=== PATIENT | female | born 1975 | race Caucasian/White ===

== ENCOUNTER 2019-02-23 14:21 | Emergency (ER) | payer BC, MEDICAID ==
[~2019-02-23] VITALS: Ht 162.6 cm; Wt 63.0 kg
[~2019-02-23 14:21] MED LIST: FLUT16SP26 BOTHNARES
--- NOTE | 2019-02-23 14:38 | NUR ---
CALLED POISON CONTROL. RECOMMENDATION CONTINUE TO OBSERVE VSS AND RESP DEPRESSION. DRAW LIVER FUNCTION TEST, ASA AND TYLENOL LEVELS. NARCAN OK TO GIVE IF NEEDED.
[2019-02-23 15:19] LABS: BASOPHILS # (AUTO) 0.1 X10'3 (0-0.2); BASOPHILS % (AUTO) 1.5 % (0-1); EOSINOPHILS # (AUTO) 0.3 X10'3 (0-0.9); EOSINOPHILS % (AUTO) 3.6 % (0-6); HEMATOCRIT 43.4 % (35.0-45.0); LYMPHOCYTES # (AUTO) 2.7 X10'3 (1.1-4.8); LYMPHOCYTES % (AUTO) 34.7 % (21-51); MEAN CORPUSCULAR HEMOGLOBIN 31.7 PG (27.0-31.0); MEAN CORPUSCULAR HGB CONC 34.5 g/dL (33.0-36.5); MEAN CORPUSCULAR VOLUME 91.7 FL (78-98); MEAN PLATELET VOLUME 8.8 FL (7.4-10.4); MONOCYTES # (AUTO) 0.4 X10'3 (0-0.9); MONOCYTES % (AUTO) 4.9 % (2-12); NEUTROPHILS # (AUTO) 4.3 X10'3 (1.8-7.7); NEUTROPHILS % (AUTO) 55.3 % (42-75); PLATELET COUNT 309 X10'3 (140-440); RED BLOOD COUNT 4.73 X10'6 (4.20-5.60); RED CELL DISTRIBUTION WIDTH 12.1 % (11.5-14.5); WHITE BLOOD COUNT 7.7 X10'3 (4.5-11.0)
[2019-02-23 15:40] LABS: ALANINE AMINOTRANSFERASE 40 U/L (12-78); ALBUMIN 4.4 G/DL (3.4-5.0); ALBUMIN/GLOBULIN RATIO 1.4 (1.1-1.5); ALKALINE PHOSPHATASE 51 IU/L (46-116); ANION GAP 11 (8-16); ASPARTATE AMINO TRANSFERASE 29 U/L (10-37); BILIRUBIN,TOTAL 0.6 MG/DL (0.1-1.0); BLOOD UREA NITROGEN 8 MG/DL (7-18); BUN/CREATININE RATIO 8.3 (6.6-38.0); CALCIUM 8.9 MG/DL (8.5-10.1); CHLORIDE 111 MMOL/L (99-107); CREATININE 0.96 MG/DL (0.40-0.90); GLUCOSE 94 MG/DL (70-104); POTASSIUM 3.8 MMOL/L (3.5-5.1); SODIUM 150 MMOL/L (135-145); TOTAL CARBON DIOXIDE 28.5 MMOL/L (24-32); TOTAL PROTEIN 7.5 G/DL (6.4-8.2); eGFR 63 ML/MIN
[2019-02-23 15:41] LABS: ETHANOL 0.194 GM/DL (0.0-0.010)
[2019-02-23 15:45] LABS: ACETAMINOPHEN < 2.0 UG/ML (10-30)
--- NOTE | 2019-02-23 15:47 | NUR ---
PT DENIES ANY SUICIDAL TENDENCIES
[2019-02-23 15:54] LABS: URINE HCG NEGATIVE (NEG)
[2019-02-23] MEDS ORDERED: ondansetron 4mg rapidly disintigrating tab PO ONE (15:55)
[2019-02-23 15:58] LABS: CLARITY,URINE CLEAR (Clear); COLOR,URINE STRAW (Yellow); GLUCOSE, URINE NEGATIVE (Neg); KETONES,URINE NEGATIVE (Neg); LEUKOCYTE ESTERASE ,URINE NEGATIVE (Neg); NITRITES, URINE NEGATIVE (Neg); OCCULT BLOOD,URINE NEGATIVE (Neg); PH,URINE 6.5 (4.8-8.0); PROTEIN,URINE NEGATIVE (Neg); UROBILINOGEN,URINE 0.2 E.U/dL (0.2-1.0)
[2019-02-23 16:00] LABS: UA COLLECTION TYPE CLN CATCH MIDSTREAM
[2019-02-23 16:06] LABS: URINE AMPHETAMINE SCREEN NEGATIVE (Neg); URINE BARBITUATE SCREEN NEGATIVE (Neg); URINE BENZODIAZEPINES SCREEN POSITIVE (Neg); URINE CANNABINOID SCREEN POSITIVE (Neg); URINE COCAINE SCREEN NEGATIVE (Neg); URINE METHADONE SCREEN NEGATIVE (Neg); URINE OPIATE SCREEN NEGATIVE (Neg); URINE PHENCYCLIDINE SCREEN NEGATIVE (Neg)
--- NOTE | 2019-02-23 17:07 | NUR ---
felipe from poison control called. provided results on lytes and tox screen. vs given. no further action needs to be done at this time per felipe. if any changes will call poison control
--- NOTE | 2019-02-23 18:45 | NUR ---
Patient brought over from the main. RN spoke with patient. Patient denies suicidal ideation. Patient states she was never suicidal. She was feeling down and drank too much. Patient is going through marital problems. Patient is tearful and states her is controlling and when she gets out of here she will go live with her mother. Continue to monitor.
[2019-02-23] MEDS ORDERED: HYDR-3972 PO (19:29)
[2019-02-23] MEDS ORDERED: ALPR-624 PO (19:29)
--- NOTE | 2019-02-23 19:43 | NUR ---
Patient's and daughter are here to see patient. Patient agreed to see both of them. gave RN a sack of clothes for patient. went up to patient's bed but stood off and did not speak to patient. Continue to monitor.
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
[2019-02-23] MEDS ORDERED: HYDROcodone/acetaminophen 10/325mg tab PO PRN (21:19)
[2019-02-23] MEDS ORDERED: ALPRAZolam 0.5mg tablet PO SCH (21:19)
--- NOTE | 2019-02-23 21:35 | NUR ---
RN gave patient her alprazolam for bed and patient stated she was anxious. Continue to monitor.
--- NOTE | 2019-02-23 22:18 | NUR ---
breaking primary RN, pt is laying on her left side, eyes closed, appears to be sleeping, no s/s of agitation observed
--- NOTE | 2019-02-24 00:20 | NUR ---
Patient sleeping on right side. No distress observed. Continue to monitor.
--- NOTE | 2019-02-24 02:05 | NUR ---
Patient awoke and asked if she could go home. RN advised patient that she is on a hold and she will be evaluated by [facility] sometime tomorrow. Patient states she has a good job that she will miss out on and asked to use the phone. RN advised patient that is was 0200 in the morning and she would have to wait until 0800. Patient stated she thought it was 2 in the afternoon and rolled over to go back to sleep. Continue to monitor.
[2019-02-24] MEDS ORDERED: hydrOXYzine 25 MG tablet PO PRN (02:15)
--- NOTE | 2019-02-24 04:30 | NUR ---
Patient sleeping supine. No distress observed. Continue to monitor.
[2019-02-24 05:30] VITALS: BP 115/65
== END 2019-02-24 08:30 | disposition home or self-care (01) ==
LOC: ER 14:21
DX: F10.920 Alcohol use, unspecified with intoxication, uncomplicated (principal); Y90.0 Blood alcohol level of less than 20 mg/100 ml; Z79.899 Other long term (current) drug therapy
CPT/HCPCS: 36415; 80053; 80305; 80320; 80329; 81003; 81025; 84443; 85025; 99283

== ENCOUNTER 2019-02-26 12:33 | Emergency (ER) | payer BC, OTHER ==
[~2019-02-26] VITALS: Ht 157.5 cm; Wt 86.4 kg
[~2019-02-26 12:33] MED LIST changes: +ALPR-624 PO; +HYDR-3972 PO
[2019-02-26 13:23] LABS: URINE HCG NEGATIVE (NEG)
[2019-02-26 13:24] LABS: CLARITY,URINE CLEAR (Clear); COLOR,URINE STRAW (Yellow); GLUCOSE, URINE NEGATIVE (Neg); KETONES,URINE NEGATIVE (Neg); LEUKOCYTE ESTERASE ,URINE NEGATIVE (Neg); NITRITES, URINE NEGATIVE (Neg); OCCULT BLOOD,URINE TRACE-INTACT (Neg); PH,URINE 5.5 (4.8-8.0); PROTEIN,URINE NEGATIVE (Neg); UROBILINOGEN,URINE 0.2 E.U/dL (0.2-1.0)
[2019-02-26 13:24] LABS: BASOPHILS # (AUTO) 0.1 X10'3 (0-0.2); BASOPHILS % (AUTO) 1.1 % (0-1); EOSINOPHILS # (AUTO) 0.4 X10'3 (0-0.9); EOSINOPHILS % (AUTO) 4.6 % (0-6); HEMATOCRIT 42.2 % (35.0-45.0); HEMOGLOBIN 14.6 g/dl (12.0-16.0); LYMPHOCYTES # (AUTO) 2.7 X10'3 (1.1-4.8); LYMPHOCYTES % (AUTO) 36.1 % (21-51); MEAN CORPUSCULAR HEMOGLOBIN 31.8 PG (27.0-31.0); MEAN CORPUSCULAR HGB CONC 34.6 g/dL (33.0-36.5); MEAN PLATELET VOLUME 9.1 FL (7.4-10.4); MONOCYTES # (AUTO) 0.3 X10'3 (0-0.9); MONOCYTES % (AUTO) 3.7 % (2-12); NEUTROPHILS # (AUTO) 4.1 X10'3 (1.8-7.7); NEUTROPHILS % (AUTO) 54.5 % (42-75); PLATELET COUNT 314 X10'3 (140-440); RED BLOOD COUNT 4.59 X10'6 (4.20-5.60); RED CELL DISTRIBUTION WIDTH 12.2 % (11.5-14.5); WHITE BLOOD COUNT 7.6 X10'3 (4.5-11.0)
[2019-02-26 13:25] LABS: UA COLLECTION TYPE VOIDED
[2019-02-26 13:29] LABS: URINE AMPHETAMINE SCREEN NEGATIVE (Neg); URINE BARBITUATE SCREEN NEGATIVE (Neg); URINE BENZODIAZEPINES SCREEN POSITIVE (Neg); URINE CANNABINOID SCREEN NEGATIVE (Neg); URINE COCAINE SCREEN NEGATIVE (Neg); URINE METHADONE SCREEN NEGATIVE (Neg); URINE OPIATE SCREEN NEGATIVE (Neg); URINE PHENCYCLIDINE SCREEN NEGATIVE (Neg)
[2019-02-26 13:34] LABS: GLUCOSE 103 MG/DL (70-104); SODIUM 147 MMOL/L (135-145)
[2019-02-26 13:34] LABS: SQUAMOUS EPITHELIAL CELL,UR FEW /LPF (FEW)
[2019-02-26 13:35] LABS: MUCUS STRANDS NONE SEEN /LPF (Neg); RBC,URINE 0-2 /HPF (0-2); WBC,URINE 0-4 /HPF (0-4)
[2019-02-26 13:35] LABS: ALANINE AMINOTRANSFERASE 42 U/L (12-78); ALBUMIN 4.6 G/DL (3.4-5.0); ALBUMIN/GLOBULIN RATIO 1.5 (1.1-1.5); ALKALINE PHOSPHATASE 55 IU/L (46-116); ANION GAP 13 (8-16); ASPARTATE AMINO TRANSFERASE 25 U/L (10-37); BILIRUBIN,TOTAL 0.6 MG/DL (0.1-1.0); BLOOD UREA NITROGEN 9 MG/DL (7-18); BUN/CREATININE RATIO 9.6 (6.6-38.0); CALCIUM 8.5 MG/DL (8.5-10.1); CHLORIDE 110 MMOL/L (99-107); CREATININE 0.94 MG/DL (0.40-0.90); POTASSIUM 3.6 MMOL/L (3.5-5.1); TOTAL CARBON DIOXIDE 23.8 MMOL/L (24-32); TOTAL PROTEIN 7.7 G/DL (6.4-8.2); eGFR 65 ML/MIN
[2019-02-26] MEDS ORDERED: HYDROcodone/acetaminophen 5mg/325mg tablet PO ONE (13:35)
[2019-02-26 13:36] LABS: BACTERIA,URINE FEW /HPF (Neg)
[2019-02-26 13:38] LABS: YEAST FEW /HPF (NEGATIVE)
[2019-02-26 13:44] LABS: ETHANOL 0.262 GM/DL (0.0-0.010)
[2019-02-26 13:45] LABS: ACETAMINOPHEN < 2.0 UG/ML (10-30)
[2019-02-26] MEDS ORDERED: ALPR-624 PO (13:48)
--- NOTE | 2019-02-26 15:51 | NUR ---
PT TRANSFERED TO [facility] FROM [facility]. PT WAS GIVEN GREEN SCRUBS TO CHANGE INTO, PERSONAL ITEMS WERE LOGGED AND TAKEN TO THE [facility]
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
--- NOTE | 2019-02-26 17:41 | NUR ---
PT'S SISTER AND [id number] VISITING AT BEDSIDE. PT IS TEARFUL.
--- NOTE | 2019-02-26 18:38 | NUR ---
PT RESTING IN BED, PROVIDED EXTRA PILLOW/BLANKET PER REQUEST
--- NOTE | 2019-02-26 19:38 | NUR ---
PT REQUESTING HER XANAX SHES STARTING TO FEEL ANXIOUS. [facility]PL[facility]
[2019-02-26] MEDS: HYDROcodone/acetaminophen 10/325mg tab PO SCH (20:00)
--- NOTE | 2019-02-26 20:08 | NUR ---
PT REFUSED NORCO AT THIS TIME SHES ALREADY FEELING ANXIOUS AND THAT MED SOMETIMES MAKES HER MORE WIRED.
[2019-02-26] MEDS ORDERED: ALPRAZolam 0.5mg tablet PO SCH (21:00)
--- NOTE | 2019-02-26 21:19 | NUR ---
PTS CALLED TO GET UPDATE, LET HIM KNOW THAT SHE WILL BE EVALUATED IN AM.
--- NOTE | 2019-02-26 22:36 | NUR ---
Packet Faxed to [facility]
--- NOTE | 2019-02-26 22:40 | NUR ---
SPOKE TO PT ABOUT PLAN OF CARE, EXPLAINED THAT SHE WOULD BE STAYING THE NIGHT AND [facility] WOULD LIKELY EVALUATE HER IN AM FOR FURTHER DISPOSITION.
--- NOTE | 2019-02-27 04:53 | NUR ---
PT SLEEPING COMFORTABLY, IN NO DISTRESS AT THIS TIME
--- NOTE | 2019-02-27 05:47 | NUR ---
PT UP TO RESTROOM AND BACK TO BED, NO ASSISTANCE NEEDED
[2019-02-27 05:53] VITALS: BP 116/68
--- NOTE | 2019-02-27 06:02 | NUR ---
PT REQUESTED USE OF PHONE, EXPLAINED HRS ARE FROM 8A-8P, SHE SAID "I NEED TO GET THE KEYS TO MY CAR". I TOLD HER THAT I WOULD BE HAPPY TO PASS ALONG HER NEEDS TO THE DAY SHIFT NURSE SO SHE COULD PROVIDE THE CORDLESS PHONE TO HER AT/AFTER 8AM.
[2019-02-27] MEDS: HYDROcodone/acetaminophen 10/325mg tab PO SCH (07:54)
--- NOTE | 2019-02-27 10:02 | NUR ---
Juan weinberg in [facility] - 02/27/19 at 1300 by [email or web address] [facility] CALLED AND PT WILL BE PICKED UP TO BE TRANSPORTED TO [facility] AT 1015.
--- NOTE | 2019-02-27 10:26 | NUR ---
BREAKING PRIMARY RN PT IS SITTING UP IN BED CALMLY TALKING TO [facility], NO S/S OF AGITATION
--- NOTE | 2019-02-27 10:57 | NUR ---
[facility] EVELUATED PT AND IS RELEASING PT THEY FEEL THERE IS NO NEED FOR A HOLD. PT IS GOING TO SEE IF SHE CAN GO TO HER BROTHERS HOUSE AND TAKE A SHOWER AND THEN GO BACK TO [address].
--- NOTE | 2019-02-27 12:15 | NUR ---
bREAKING PRIMARY RN PT IS SITTING UP IN BED AWAITING DC, CALM, NO S/S OF DISTRESS OBSERVED
== END 2019-02-27 13:40 | disposition home or self-care (01) ==
LOC: ER 12:33
DX: F10.129 Alcohol abuse with intoxication, unspecified (principal); R45.851 Suicidal ideations; F32.9 Major depressive disorder, single episode, unspecified; G89.29 Other chronic pain; Z79.899 Other long term (current) drug therapy
CPT/HCPCS: 36415; 80053; 80305; 80320; 80329; 81001; 81025; 84443; 85025; 99284